=== PATIENT | female | born 1985 | race Caucasian/White ===

== ENCOUNTER 2020-07-08 14:43 | Inpatient (IN) | payer OTHER ==
[~2020-07-08] VITALS: Ht 170.2 cm; Wt 61.2 kg
[2020-07-08 15:22] LABS: HEMATOCRIT 41.3 % (37.0-47.0); MEAN CELL VOLUME 87.3 fl (81.0-99.0); MEAN CORPUSCULAR HGB 29.8 pg (27.0-31.0); MEAN CORPUSCULAR HGB CONC 34.1 g/dl (33.0-37.0); MEAN PLATELET VOLUME 9.1 fl (9.6-12.3); PLATELET COUNT AUTOMATED 220 10*3/uL (130-400); RED BLOOD COUNT 4.73 10*6/uL (4.10-5.10); RED CELL DISTRI WIDTH 11.8 % (0-14.5); WHITE BLOOD COUNT 7.4 10*3/uL (4.8-10.8)
[2020-07-08 15:24] VITALS: BP 128/88
[2020-07-08 15:29] LABS: INTERNATIONAL NORM RATIO 1.1 (2.0-3.5)
[2020-07-08] MEDS ORDERED: BUSPAR15 MG PO (15:31)
[2020-07-08] MEDS ORDERED: TRILEPTAL600 MG PO (15:31)
[2020-07-08 15:37] LABS: ALBUMIN 3.9 gm/dl (3.1-4.5); ALKALINE PHOSPHATASE 69 U/L (45-117); BUN 20 mg/dl (7-24); CHLORIDE 108 mmol/L (98-107); CREATININE 0.66 mg/dL (0.55-1.02); POTASSIUM 3.8 mmol/L (3.5-5.1); SGOT/AST 15 IU/L (3-35); SGPT/ALT 17 U/L (12-78); SODIUM 135 mmol/L (136-145); TOTAL PROTEIN 7.8 gm/dL (6.4-8.2)
[2020-07-08] MEDS ORDERED: COGENTIN0.5 MG PO (15:38)
[2020-07-08 15:40] LABS: BETA-HCG, QUANT < 1.0 mIU/mL (1-3); ETHYL ALCOHOL < 3.0 mg/dl (<3)
[2020-07-08] MEDS ORDERED: SEROQUEL100 MG PO (15:40)
[2020-07-08 15:49] LABS: BURR CELLS FEW; PLATELET SUFFICIENCY NORMAL (NORMAL); TOTAL CELLS COUNTED 100 #CELLS
[2020-07-08 16:11] LABS: BILIRUBIN Negative (Negative); BLOOD Negative (Negative); CLARITY Cloudy (Clear); COLOR Yellow (Yellow); GLUCOSE Negative (Negative); KETONE Trace (Negative); LEUKO ESTERASE Trace (Negative); NITRITE Negative (Negative); SPECIFIC GRAVITY 1.025 (1.001-1.030)
[2020-07-08 16:23] LABS: BACTERIA 1+; CALCIUM OXALATE CRYSTALS Trace; EPITHELIAL CELLS 16-20; HYALINE CAST 0-2; MUCOUS 2+; WBC 0-2 wbc/hpf (0-5)
[2020-07-08 20:00] VITALS: BP 134/81
[2020-07-09] VITALS: BP 121/54
[2020-07-09 08:00] VITALS: BP 128/67
[2020-07-09 12:00] VITALS: BP 124/74
[2020-07-09 16:00] VITALS: BP 120/70; BP 124/74
[2020-07-09 20:00] VITALS: BP 115/76
[2020-07-10] VITALS: BP 99/51
[2020-07-10 08:00] VITALS: BP 112/70
[2020-07-10 12:00] VITALS: BP 101/57
[2020-07-10 16:00] VITALS: BP 126/70
[2020-07-10 23:58] VITALS: BP 119/73
[2020-07-11 08:00] VITALS: BP 109/69
[2020-07-11] MEDS ORDERED: ROPINIROLE HYD0.5 MG PO (11:34)
[2020-07-11] MEDS ORDERED: METHOCARBAMOL750 M1 PO (11:35)
== END 2020-07-11 12:40 | disposition home or self-care (01) | DRG 773 ==
LOC: 4E 14:43
PROVIDERS: Internal Medicine; ADMIT Emergency Medicine; ATTEND Emergency Medicine
DX: F11.23 Opioid dependence with withdrawal (principal); E87.1 Hypo-osmolality and hyponatremia; E87.2 Acidosis; F31.9 Bipolar disorder, unspecified; E87.8 Other disorders of electrolyte and fluid balance, not elsewhere classified; F17.210 Nicotine dependence, cigarettes, uncomplicated; Z71.6 Tobacco abuse counseling; F41.9 Anxiety disorder, unspecified; Z90.49 Acquired absence of other specified parts of digestive tract; Z79.899 Other long term (current) drug therapy

== ENCOUNTER 2022-03-25 14:40 | Emergency (ER) | payer OTHER ==
[~2022-03-25] VITALS: Ht 170.1 cm; Wt 59.0 kg
[~2022-03-25 14:40] MED LIST: BUSPAR15 MG PO; COGENTIN0.5 MG PO; METHOCARBAMOL750 M1 PO; ROPINIROLE HYD0.5 MG PO; SEROQUEL100 MG PO; TRILEPTAL600 MG PO
[2022-03-25 14:56] VITALS: BP 145/95
[2022-03-25 15:25] LABS: BASO % 0.5 % (0.0-1.0); EOS # 0.1 10*3/uL (0.0-0.4); EOS % 1.7 % (1.0-4.0); HEMATOCRIT 45.1 % (37.0-47.0); LYMPH # 2.5 10*3/uL (1.3-4.4); LYMPH % 32.8 % (27.0-41.0); MEAN CELL VOLUME 85.1 fl (81.0-99.0); MEAN CORPUSCULAR HGB 29.1 pg (27.0-31.0); MEAN CORPUSCULAR HGB CONC 34.1 g/dl (33.0-37.0); MEAN PLATELET VOLUME 8.5 fl (9.6-12.3); MONO # 0.6 10*3/uL (0.1-1.0); MONO % 7.9 % (3.0-9.0); NEUT # 4.2 10*3/uL (2.3-7.9); PLATELET COUNT AUTOMATED 238 10*3/uL (130-400); RED CELL DISTRI WIDTH 15.2 % (0-14.5); WHITE BLOOD COUNT 7.5 10*3/uL (4.8-10.8)
[2022-03-25 15:46] LABS: ALKALINE PHOSPHATASE 64 U/L (46-116); BUN 10 mg/dl (9-23); CHLORIDE 103 mmol/L (98-107); CPK 53 U/L (34-171); ETHYL ALCOHOL 135.8 mg/dl (<3); POTASSIUM 3.5 mmol/L (3.4-5.1); SGPT/ALT 140 U/L (10-49); TOTAL PROTEIN 7.9 gm/dL (6.0-8.0)
[2022-03-25 15:54] LABS: B-hCG (QUALITATIVE) NEGATIVE (NEGATIVE)
[2022-03-25] MEDS ORDERED: METFORMIN HYD1000 MG PO (16:43)
[2022-03-25] MEDS ORDERED: TRAZODONE150 MG PO (16:43)
[2022-03-25] MEDS ORDERED: METFORMIN XR500 MG PO (16:43)
[2022-03-25] MEDS ORDERED: BUSPIRONE30 MG PO (16:44)
[2022-03-25] MEDS ORDERED: VISTARIL50 MG PO (16:44)
[2022-03-25 17:22] LABS: URINE AMPHETAMINES Positive (1000ng/ml); URINE BARBITURATES Negative (200ng/ml); URINE BENZODIAZEPINES Negative (200ng/ml); URINE CANNABINOIDS (THC) Negative (50ng/ml); URINE COCAINE Positive (300ng/ml); URINE METHADONE Negative (300ng/ml); URINE OPIATES Negative (300ng/ml); URINE PHENCYCLIDINE Negative (25ng/ml)
== END 2022-03-25 22:20 | disposition left against medical advice (07) ==
LOC: ED 14:40 → EDHOLD 19:26 → ED 19:26 → 5E 20:52 → EDHOLD 20:52 → 5E 22:22
PROVIDERS: Physician Assistant
DX: F10.939 Alcohol use, unspecified with withdrawal, unspecified (principal); F31.9 Bipolar disorder, unspecified; Z90.49 Acquired absence of other specified parts of digestive tract; Z98.890 Other specified postprocedural states; F17.200 Nicotine dependence, unspecified, uncomplicated; F41.9 Anxiety disorder, unspecified; F19.10 Other psychoactive substance abuse, uncomplicated; E11.9 Type 2 diabetes mellitus without complications

== ENCOUNTER 2022-04-25 03:44 | Emergency (ER) | payer OTHER ==
[~2022-04-25] VITALS: Ht 170.1 cm; Wt 59.0 kg
[~2022-04-25 03:44] MED LIST changes: +BUSPIRONE30 MG PO; +METFORMIN HYD1000 MG PO; +METFORMIN XR500 MG PO; +TRAZODONE150 MG PO; +VISTARIL50 MG PO
[2022-04-25 04:57] LABS: BILIRUBIN Negative (Negative); BLOOD Trace-Lysed (Negative); CLARITY Turbid (Clear); COLOR Yellow (Yellow); GLUCOSE Negative (Negative); KETONE Negative (Negative); LEUKO ESTERASE 2+ (Negative); NITRITE Positive (Negative)
[2022-04-25 05:02] LABS: BACTERIA 4+; EPITHELIAL CELLS TNTC; WBC 21-30 wbc/hpf (0-5)
[2022-04-25 05:04] LABS: URINE AMPHETAMINES Positive (1000ng/ml); URINE BARBITURATES Negative (200ng/ml); URINE BENZODIAZEPINES Negative (200ng/ml); URINE CANNABINOIDS (THC) Negative (50ng/ml); URINE COCAINE Positive (300ng/ml); URINE METHADONE Negative (300ng/ml); URINE OPIATES Negative (300ng/ml); URINE PHENCYCLIDINE Negative (25ng/ml)
[2022-04-25 06:06] LABS: BASO % 0.5 % (0.0-1.0); EOS # 0.3 10*3/uL (0.0-0.4); EOS % 3.3 % (1.0-4.0); HEMATOCRIT 45.6 % (37.0-47.0); LYMPH % 25.2 % (27.0-41.0); MEAN CELL VOLUME 86.4 fl (81.0-99.0); MEAN CORPUSCULAR HGB 28.8 pg (27.0-31.0); MEAN CORPUSCULAR HGB CONC 33.3 g/dl (33.0-37.0); MEAN PLATELET VOLUME 9.5 fl (9.6-12.3); MONO # 0.5 10*3/uL (0.1-1.0); MONO % 6.8 % (3.0-9.0); NEUT % 63.2 % (47.0-73.0); PLATELET COUNT AUTOMATED 258 10*3/uL (130-400); RED BLOOD COUNT 5.28 10*6/uL (4.10-5.10); RED CELL DISTRI WIDTH 13.8 % (0-14.5)
[2022-04-25 06:25] LABS: ALKALINE PHOSPHATASE 80 U/L (46-116); BUN 11 mg/dl (9-23); CHLORIDE 102 mmol/L (98-107); ETHYL ALCOHOL 44.4 mg/dl (<3); POTASSIUM 3.7 mmol/L (3.4-5.1); SGPT/ALT 36 U/L (10-49); TOTAL PROTEIN 7.8 gm/dL (6.0-8.0)
[2022-04-25] MEDS ORDERED: CIPRO500 MG PO (09:19)
== END 2022-04-25 09:21 | disposition home or self-care (01) ==
LOC: ED 03:44
PROVIDERS: Emergency Medicine
DX: N39.0 Urinary tract infection, site not specified (principal); F10.10 Alcohol abuse, uncomplicated; F14.10 Cocaine abuse, uncomplicated; Z91.013 Allergy to seafood; Z90.49 Acquired absence of other specified parts of digestive tract; Z98.890 Other specified postprocedural states; Z87.891 Personal history of nicotine dependence; Y90.9 Presence of alcohol in blood, level not specified

== ENCOUNTER 2022-05-04 12:10 | Inpatient (IN) | payer OTHER ==
[~2022-05-04] VITALS: Ht 170.2 cm; Wt 58.2 kg
[~2022-05-04 12:10] MED LIST changes: +CIPRO500 MG PO
[2022-05-04 12:30] VITALS: BP 127/72
[2022-05-04 13:09] LABS: BASO % 0.2 % (0.0-1.0); EOS # 0.7 10*3/uL (0.0-0.4); EOS % 6.2 % (1.0-4.0); HEMATOCRIT 41.5 % (37.0-47.0); LYMPH # 2.2 10*3/uL (1.3-4.4); LYMPH % 19.6 % (27.0-41.0); MEAN CELL VOLUME 85.4 fl (81.0-99.0); MEAN CORPUSCULAR HGB 29.2 pg (27.0-31.0); MEAN CORPUSCULAR HGB CONC 34.2 g/dl (33.0-37.0); MEAN PLATELET VOLUME 9.2 fl (9.6-12.3); MONO # 0.9 10*3/uL (0.1-1.0); MONO % 7.9 % (3.0-9.0); NEUT # 7.3 10*3/uL (2.3-7.9); PLATELET COUNT AUTOMATED 263 10*3/uL (130-400); RED BLOOD COUNT 4.86 10*6/uL (4.10-5.10); RED CELL DISTRI WIDTH 13.3 % (0-14.5)
[2022-05-04 13:25] LABS: ALKALINE PHOSPHATASE 78 U/L (46-116); BUN 13 mg/dl (9-23); CHLORIDE 102 mmol/L (98-107); POTASSIUM 3.3 mmol/L (3.4-5.1); SGPT/ALT 24 U/L (10-49); TOTAL PROTEIN 7.2 gm/dL (6.0-8.0)
[2022-05-04 13:26] LABS: ETHYL ALCOHOL < 3.0 mg/dl (<3)
[2022-05-04 15:09] LABS: BILIRUBIN Negative (Negative); BLOOD 2+ (Negative); CLARITY Cloudy (Clear); COLOR Dark Yellow (Yellow); GLUCOSE Negative (Negative); KETONE Trace (Negative); LEUKO ESTERASE Trace (Negative); NITRITE Negative (Negative); SPECIFIC GRAVITY >= 1.030 (1.001-1.030)
[2022-05-04 15:14] LABS: URINE AMPHETAMINES Positive (1000ng/ml); URINE BARBITURATES Negative (200ng/ml); URINE BENZODIAZEPINES Negative (200ng/ml); URINE CANNABINOIDS (THC) Negative (50ng/ml); URINE COCAINE Positive (300ng/ml); URINE METHADONE Negative (300ng/ml); URINE OPIATES Negative (300ng/ml); URINE PHENCYCLIDINE Negative (25ng/ml)
[2022-05-04 16:00] VITALS: BP 117/71
[2022-05-04 16:05] LABS: CALCIUM OXALATE CRYSTALS 2+; RBC 0-2 rbc/hpf (0-2); WBC 0-2 wbc/hpf (0-5)
[2022-05-04 20:00] VITALS: BP 109/76
[2022-05-05] VITALS: BP 94/54
[2022-05-05 08:00] VITALS: BP 90/57
[2022-05-05 12:00] VITALS: BP 114/56
[2022-05-05 16:00] VITALS: BP 108/69
[2022-05-05 20:00] VITALS: BP 113/68
[2022-05-06] VITALS: BP 103/59
[2022-05-06 08:00] VITALS: BP 96/51
[2022-05-06 09:05] LABS: BASO % 0.4 % (0.0-1.0); EOS # 0.7 10*3/uL (0.0-0.4); EOS % 11.9 % (1.0-4.0); HEMATOCRIT 41.8 % (37.0-47.0); LYMPH # 1.2 10*3/uL (1.3-4.4); LYMPH % 21.5 % (27.0-41.0); MEAN CELL VOLUME 84.4 fl (81.0-99.0); MEAN CORPUSCULAR HGB 29.1 pg (27.0-31.0); MEAN CORPUSCULAR HGB CONC 34.4 g/dl (33.0-37.0); MEAN PLATELET VOLUME 8.8 fl (9.6-12.3); MONO # 0.6 10*3/uL (0.1-1.0); NEUT # 3.2 10*3/uL (2.3-7.9); PLATELET COUNT AUTOMATED 207 10*3/uL (130-400); RED BLOOD COUNT 4.95 10*6/uL (4.10-5.10); RED CELL DISTRI WIDTH 13.3 % (0-14.5); WHITE BLOOD COUNT 5.6 10*3/uL (4.8-10.8)
[2022-05-06 09:17] LABS: BUN 13 mg/dl (9-23); CHLORIDE 105 mmol/L (98-107); POTASSIUM 3.9 mmol/L (3.4-5.1)
[2022-05-06 12:00] VITALS: BP 119/70
[2022-05-06 16:00] VITALS: BP 125/75
[2022-05-06 20:00] VITALS: BP 111/62
== END 2022-05-06 21:49 | disposition left against medical advice (07) | DRG 770 ==
LOC: 5E 12:10
PROVIDERS: Internal Medicine; Registered Nurse; ADMIT Internal Medicine; ATTEND Internal Medicine
PROC: 05H933Z Insertion of Infusion Device into Right Brachial Vein, Percutaneous Approach (ICD-10-PCS; principal; 2022-05-04)
PROC: B54MZZA Ultrasonography of Right Upper Extremity Veins, Guidance (ICD-10-PCS; 2022-05-04)
DX: F10.139 Alcohol abuse with withdrawal, unspecified (principal); F11.93 Opioid use, unspecified with withdrawal; F17.210 Nicotine dependence, cigarettes, uncomplicated; F19.10 Other psychoactive substance abuse, uncomplicated; E11.9 Type 2 diabetes mellitus without complications; H05.011 Cellulitis of right orbit; F31.9 Bipolar disorder, unspecified; B18.2 Chronic viral hepatitis C; Z53.29 Procedure and treatment not carried out because of patient's decision for other reasons; F14.10 Cocaine abuse, uncomplicated

== ENCOUNTER 2022-11-11 20:09 | Emergency (ER) | payer OTHER ==
[~2022-11-11] VITALS: Ht 170.1 cm; Wt 63.5 kg
[2022-11-11 21:09] LABS: BASO % 0.6 % (0.0-1.0); EOS # 0.2 10*3/uL (0.0-0.4); EOS % 2.9 % (1.0-4.0); HEMATOCRIT 40.1 % (37.0-47.0); LYMPH # 1.8 10*3/uL (1.3-4.4); LYMPH % 35.5 % (27.0-41.0); MEAN CELL VOLUME 85.3 fl (81.0-99.0); MEAN CORPUSCULAR HGB 29.1 pg (27.0-31.0); MEAN CORPUSCULAR HGB CONC 34.2 g/dl (33.0-37.0); MEAN PLATELET VOLUME 9.5 fl (9.6-12.3); MONO # 0.4 10*3/uL (0.1-1.0); NEUT # 2.7 10*3/uL (2.3-7.9); NEUT % 52.8 % (47.0-73.0); PLATELET COUNT AUTOMATED 216 10*3/uL (130-400); RED CELL DISTRI WIDTH 12.9 % (0-14.5); WHITE BLOOD COUNT 5.1 10*3/uL (4.8-10.8)
[2022-11-11 21:20] LABS: ACT PARTIAL THROMBO TIME 24.7 SECONDS (20.0-32.1); INTERNATIONAL NORM RATIO 1.1 (2.0-3.5)
[2022-11-11 21:33] LABS: ALKALINE PHOSPHATASE 57 U/L (46-116); BUN 7 mg/dl (9-23); CHLORIDE 107 mmol/L (98-107); CPK 92 U/L (34-171); ETHYL ALCOHOL 120.8 mg/dl (<3); LIPASE 19 U/L (12-53); POTASSIUM 3.6 mmol/L (3.4-5.1); SGPT/ALT 57 U/L (10-49); TOTAL PROTEIN 7.7 gm/dL (6.0-8.0)
[2022-11-13] MEDS ORDERED: BUSPAR15 MG PO (23:45)
[2022-11-13] MEDS ORDERED: TRAZODONE50 MG PO (23:45)
[2022-11-14] MEDS ORDERED: TRAZODONE100 MG PO (12:19)
[2022-11-14] MEDS ORDERED: PAROXETINE HCL20 MG PO (12:20)
[2022-11-14] MEDS ORDERED: DEPO-PROVE150 MG/11 IM (12:20)
== END 2022-11-11 21:37 | disposition left against medical advice (07) ==
LOC: ED 20:09
PROVIDERS: Internal Medicine
DX: F10.129 Alcohol abuse with intoxication, unspecified (principal); F31.9 Bipolar disorder, unspecified; F41.9 Anxiety disorder, unspecified; Z91.013 Allergy to seafood; Z90.49 Acquired absence of other specified parts of digestive tract; Z98.890 Other specified postprocedural states; F10.10 Alcohol abuse, uncomplicated; F17.200 Nicotine dependence, unspecified, uncomplicated; Y90.0 Blood alcohol level of less than 20 mg/100 ml